=== PATIENT | male | born 1995 | race Two or more races ===

== ENCOUNTER 2019-08-19 02:12 | Emergency (ER) | payer MEDICAID ==
[~2019-08-19] VITALS: Ht 188 cm; Wt 85.0 kg
[~2019-08-19 02:12] MED LIST: [UNRECOGNIZED DRUG - REMARK]
[2019-08-19 02:22] VITALS: BP 125/75
== END 2019-08-19 02:27 ==
LOC: ED 02:21
DX: Z00.00 Encounter for general adult medical examination without abnormal findings (principal)
CPT/HCPCS: 99283

== ENCOUNTER 2020-11-26 01:38 | Inpatient (IN) | payer MEDICAID, OTHER ==
[~2020-11-26] VITALS: Ht 182.9 cm; Wt 68.9 kg
[2020-11-26] MEDS ORDERED: LORazepam 2 MG/ML, 1ML ONE (01:51)
[2020-11-26] MEDS ORDERED: SODIUM CHLORIDE FLUSH 10ML SYR IVF ONE (02:00)
[2020-11-26] MEDS ORDERED: SODIUM CHLORIDE 0.9% 1,000ML IVBOLUS ONE ×2 (02:00→03:00)
[2020-11-26] MEDS ORDERED: LORazepam 2 MG/ML, 1ML IVPush ONE ×2 (02:00→03:00)
[2020-11-26] MEDS ORDERED: ONDANSETRON 2MG/ML, 2ML IVPush ONE (02:00)
[2020-11-26 02:12] LABS: BASOPHILS % (AUTO) 0 % (0-1); EOSINOPHILS % (AUTO) 0 % (1-7); LYMPHOCYTES % (AUTO) 6 % (22-44); MEAN CORPUSCULAR HEMOGLOBIN 30.9 pg (27.5-34.5); MEAN CORPUSCULAR HGB CONC 35.9 g/dL (33.2-36.2); MEAN PLATELET VOLUME 6.3 fL (7.4-10.4); MONOCYTES % (AUTO) 6 % (2-9); NEUTROPHILS % (AUTO) 88 % (42-75); PLATELET COUNT 210 x10^3/uL (130-400); RED BLOOD COUNT 4.24 x10^6/uL (4.38-5.82); RED CELL DISTRIBUTION WIDTH 13.7 % (9.4-14.8)
[2020-11-26 02:23] LABS: ALANINE AMINOTRANSFERASE 21 U/L (12-78); ALBUMIN 3.7 g/dL (3.4-5.0); CALCIUM 8.2 mg/dL (8.5-10.1); CREATININE 0.55 mg/dL (0.7-1.3)
[2020-11-26 02:25] LABS: ALKALINE PHOSPHATASE 49 U/L (45-117); BILIRUBIN,TOTAL 0.7 mg/dL (0.2-1.0); TOTAL PROTEIN 7.6 g/dL (6.4-8.2)
[2020-11-26 02:30] LABS: ANION GAP 6 mmol/L (5-15); CHLORIDE 89 mmol/L (98-107)
[2020-11-26 02:35] LABS: AMPHETAMINE SCREEN, URINE Negative (Negative); BARBITURATE SCREEN, URINE Negative (Negative); BENZODIAZEPINE SCREEN, URINE Negative (Negative); CANNABINOID SCREEN, URINE Negative (Negative); COCAINE SCREEN, URINE Negative (Negative); METHADONE SCREEN, URINE Negative (Negative); OPIATE SCREEN, URINE Negative (Negative)
[2020-11-26] MEDS ORDERED: SODIUM CHLORIDE 0.9% 1,000 ML IV ONE (03:00)
--- NOTE | 2020-11-26 03:06 | NUR ---
Pt given 1mg Ativan IV per eMAR to aid in pt staying still for CT scan.
--- NOTE | 2020-11-26 03:11 | NUR ---
Arrived via EMS from [facility] due to altered mental status. Pt was found down in pool of vomit and urine at the [facility] and was nonverbal to staff. Upon arrival pt incontent of urine and bowel and jumpsuit is wet. 3 officers at bedside. Pt connected to all monitors, changed into gown, and EKG attempted. Pt shaking too much to get accurate EKG, will attempt again later. PIV 18g in L forearm placed in route to ED, patent but positional. Pt non-verbal with dilated pupils, strong extemities, tachy HR in the 120s and all other VSS. WCTM
[2020-11-26] MEDS ORDERED: ACETAMINOPHEN 325 MG TABLET PO PRN (03:30)
[2020-11-26] MEDS ORDERED: NS + 20MEQ KCL 1,000 ML IV SCH (03:30)
[2020-11-26] MEDS ORDERED: LABETALOL 5MG/ML, 20ML IVPush PRN (03:30)
[2020-11-26] MEDS ORDERED: ONDANSETRON 2MG/ML, 2ML IVPush PRN (03:30)
[2020-11-26] MEDS ORDERED: POTASSIUM CHLORIDE 20 MEQ in SODIUM CHLORIDE 0.9% 250 ML IV ONE (03:30)
--- NOTE | 2020-11-26 04:18 | NUR ---
Patient is resting comfortably in bed. Bed in lowest, rails engaged, call light on lap. Vital Signs within normal limits. WCTM. 3 care home gaurds at bedside. pt handcuffed at wrists and legs. breathin even and unlabored. aditi
--- NOTE | 2020-11-26 04:52 | NUR ---
Report to Richard MERAZ
[2020-11-26 06:16] VITALS: BP 96/66
[2020-11-26] MEDS ORDERED: MAGNESIUM SULFATE PMX 2GM/50ML 50 ML IV ONE (06:30)
[2020-11-26] MEDS ORDERED: LEVETIRACETAM 1,000 MG in SODIUM CHLORIDE 0.9% 100 ML IV ONE (06:30)
[2020-11-26] MEDS: NS + 40MEQ KCL 1,000 ML IV SCH ×2 (06:54→18:19)
[2020-11-26 07:01] LABS: CHOL/HDL RATIO 2.2; LDL/HDL RATIO 1.1 (0.5-3.0)
[2020-11-26 08:00] LABS: CHLORIDE,URINE RANDOM 75 mmol/L; POTASSIUM,URINE RANDOM 13 mmol/L; SODIUM,URINE RANDOM 77 mmol/L
[2020-11-26 09:39] LABS: MICROSCOPIC NOT IND
[2020-11-27 04:00] VITALS: BP 147/77
[2020-11-27 04:21] LABS: BASOPHILS % (AUTO) 0 % (0-1); EOSINOPHILS % (AUTO) 0 % (1-7); LYMPHOCYTES % (AUTO) 9 % (22-44); MEAN CORPUSCULAR HEMOGLOBIN 31.3 pg (27.5-34.5); MEAN CORPUSCULAR HGB CONC 35.9 g/dL (33.2-36.2); MEAN PLATELET VOLUME 6.5 fL (7.4-10.4); MONOCYTES % (AUTO) 9 % (2-9); NEUTROPHILS % (AUTO) 82 % (42-75); PLATELET COUNT 252 x10^3/uL (130-400); RED BLOOD COUNT 4.85 x10^6/uL (4.38-5.82); RED CELL DISTRIBUTION WIDTH 14.1 % (9.4-14.8)
[2020-11-27 04:31] LABS: CALCIUM 9.1 mg/dL (8.5-10.1); CREATININE 0.76 mg/dL (0.7-1.3)
[2020-11-27 04:37] LABS: ANION GAP 5 mmol/L (5-15); CHLORIDE 103 mmol/L (98-107)
[2020-11-27] MEDS: OLANZAPINE 10 MG TABLET PO SCH (09:30)
[2020-11-27] MEDS: RISPERIDONE 1 MG TABLET PO SCH ×2 (10:41→20:39)
[2020-11-27] MEDS: BENZTROPINE 1 MG TABLET PO SCH ×2 (10:41→20:39)
[2020-11-27] MEDS ORDERED: OLANZAPINE 5 MG TABLET PO SCH (21:00)
[2020-11-28 05:15] VITALS: BP 105/69
[2020-11-28] MEDS ORDERED: BENZ1TAB61 PO (07:28)
[2020-11-28] MEDS ORDERED: OLAN5TAB9 PO (07:28)
[2020-11-28] MEDS ORDERED: RISP1TAB90 PO (07:28)
[2020-11-28] MEDS ORDERED: OLAN10TA9 PO (07:28)
[2020-11-28 07:38] VITALS: BP 121/84
[2020-11-28] MEDS: BENZTROPINE 1 MG TABLET PO SCH (09:56)
[2020-11-28] MEDS: OLANZAPINE 10 MG TABLET PO SCH (09:56)
[2020-11-28] MEDS: RISPERIDONE 1 MG TABLET PO SCH (09:56)
== END 2020-11-28 14:50 | DRG 53 ==
LOC: ED 03:59 → EDIP 05:31 → CCU 05:34 → 4WST 11-28 04:40
PROVIDERS: ADMIT Family Medicine; ATTEND Internal Medicine
DX: R56.9 Unspecified convulsions (principal); E87.1 Hypo-osmolality and hyponatremia; R32 Unspecified urinary incontinence; E87.6 Hypokalemia; R73.9 Hyperglycemia, unspecified; E55.9 Vitamin D deficiency, unspecified
CPT/HCPCS: 36415; 70450; 80048; 80053; 80061; 80307; 80320; 81003; 82140; 82436; 82962; 83036; 83735; 83930; 83935; 84133; 84295; 84300; 84443; 85025; 87081; 93005; 96374; G0378; J1953; J3480; G0480; J2060; J3475; J7030; J7050